=== PATIENT | female | born 1995 | race Caucasian/White ===

== ENCOUNTER 2016-09-17 12:36 | Emergency (ER) | payer OTHER ==
[~2016-09-17] VITALS: Ht 162.6 cm; Wt 67.2 kg
[2016-09-17 12:41] VITALS: Ht 162.6 cm; Wt 67.2 kg
[2016-09-17] MEDS ORDERED: BCPILLS PO (12:47)
[2016-09-17] MEDS ORDERED: CLIN1GEL TOP (12:47)
[2016-09-17] MEDS ORDERED: PROPARACAINE HCL 0.5% OP SOLN 15 ML BTL OP STA (13:12)
[2016-09-17] MEDS ORDERED: CIPR0.3S OPB (14:19)
[2016-09-17] MEDS ORDERED: OXYC1TAB3 PO (14:19)
--- NOTE | 2016-09-17 14:28 | EMERGENCY ROOM VISIT NOTE ---
History First contact with patient: 12:58 Chief Complaint: EYE PAIN Stated Complaint: EYES SWOLLEN SHUT, DRAINING, PAIN, CAN'T SEE History of Present Illness The patient is a 20 year old female who presents to the Emergency Room with complaints of bilateral eye swelling, drainage, pain, light sensitivity and blurred vision. The patient reports that her symptoms started yesterday. The patient does were contacts. The contacts are not extended-wear, and the patient has only been wearing them for one week. They are not heat sterilized. The patient also reports that [place], and was wondering if this could also be allergies. She does note rather significant discomfort, rating her pain an 8 out of 10. Tetanus immunization is up-to-date. Review of Systems 10 system review was performed and was negative except for pertinent positives and negatives as indicated in history of present illness Past Medical/Surgical History Medical Problems: (1) Coarctation of aorta Surgical Problems: (1) History of heart surgery Family History FH: hypertension Social History Smoking Status: Never Smoker Alcohol Use: none Marital Status: single Housing Status: lives with family Occupation Status: employed, student Current/Historical Medications Scheduled Control Pills ( Control Pills), 1 TAB PO DAILY Ciprofloxacin Hcl (Ophth) (Ciloxan Oph), 1 DROP OPB Q4H Clindamycin Phosphate (Topical (Cleocin-T), 1 APPLN TOP BID Scheduled PRN Oxycodone Ir (Roxicodone Ir), 1-2 TAB PO Q4H PRN for Pain Allergies Coded Allergies: Amoxicillin (Unverified Adverse Reaction, Intermediate, HIVES, 09/17/16) Penicillins (Unverified Adverse Reaction, Intermediate, HIVES, 09/17/16) Physical Exam Vital Signs Date Time Temp Pulse Resp B/P (MAP) Pulse Ox O2 Delivery O2 Flow Rate FiO2 09/17/16 12:41 36.9 67 18 140/92 99 Room Air Right Eye Acuity: 20/20 Left Eye Acuity: 20/50 Physical Exam CONSTITUTIONAL: Healthy and well nourished. Alert and oriented X 3 with positive affect. HEENT: Normocephalic, atraumatic. Pupils equal, round and reactive. She is photophobic. She does have slight conjunctival injection. No obvious mucopurulent drainage. EOMs intact. NECK: Full active range of motion without discomfort. RESPIRATORY: Clear to auscultation bilaterally with no wheezing, crackles, rhonchi or stridor. CARDIOVASCULAR: Regular rate and rhythm with no murmurs, rubs or gallops. INTEGUMENTARY: No rash or other significant dermatologic conditions noted. NEUROLOGIC: No focal neurologic deficits noted. Medical Decision & Procedures Procedure Slit lamp and fluorescein exam were performed. 2 drops of Alcaine were instilled into each eye, providing complete relief of her discomfort. Slit lamp exam shows mild conjunctival injection without evidence for mucopurulent drainage. Negative hyphema. Negative cell and flare. First in exam shows uptake of the cornea, consistent with contact lens induced keratitis. ED Course Patient history and physical exam were performed. Nurse's notes were reviewed. Vital signs were reviewed, including visual acuity. Slit lamp and fluorescein exam are most consistent with a bilateral corneal contact lens induced keratitis. The patient was provided prescriptions for Ciloxan 0.3% ophthalmic solution, and OxyIR 5 mg. The patient was also encouraged to alternate ibuprofen and Tylenol for baseline pain relief, and intermittently apply cool compresses. Sunglasses as needed for additional relief. The patient was instructed to refrain from contact lens use for the next 12-14 days , then start with all brand new products. She was instructed to return here or follow-up with an sheetrock applicator if symptoms are not improving within the next 48 hours. She was happy with plan of care, and denied any discomfort at the conclusion of my exam. 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 Ibuprofen 800 mg and/or Tylenol 1000 mg every 8 hours. You may also alternate these medications for more effective pain relief: Ibuprofen --4 HRS--> Tylenol --4 HRS--> ibuprofen --4 HRS--> Tylenol .... OxyIR if needed for worse pain. Do not drink or drive while taking OxyIR. You may also intermittently apply a cool compress and wear sunglasses for additional relief. No contact lens use for 12-14 days. Start with all-new contact lenses, solution, rewetting drops and cosmetics. Follow-up with an sheetrock applicator if no improvement within 36-48 hrs.
[2016-09-17 14:35] VITALS: BP 140/92; PULSE 67; TEMP 36.9; O2SAT 99
== END 2016-09-17 14:37 | disposition home or self-care (01) ==
LOC: C.EDB 12:38 → C.EDD 14:37
DX: H18.9 Unspecified disorder of cornea (principal)